=== PATIENT | male | born 1975 | race Hispanic/Latino ===

== ENCOUNTER 2024-09-08 14:46 | Emergency (ER) | payer OTHER, SELFPAY ==
[2024-09-08] VITALS (18 sets, daily range): BP systolic 118–170; BP diastolic 60–93; PULSE 48–86; RESP 12–22; TEMP 36.8; O2SAT 92–100; BMI 42.0
--- NOTE | 2024-09-08 15:12 | EKG_ITS ---
[address] [address] Test Date: 2024-09-08 Pat Name: José Manuel Ramirez Department: Room: Gender: Male Consumer Marketing Specialist: WILLIAM : 1975 Requested By: Order Number: [id number] Reading MD: Eliot Sage Measurements Intervals [place] Rate: 50 P: 44 AL: 146 QRS: 8 QRSD: 92 T: 9 QT: 434 QTc: 395 Interpretive Statements Sinus bradycardia Electronically Signed On 09-08-2024 16:51:57 PST by Eliot Sage
[2024-09-08] MEDS: ONDANSETRON 4 MG/2 ML INJ IV (15:22)
[2024-09-08 15:25] LABS: Add Manual Diff / Slide Review NO; Basophils Absolute Auto 0 /uL (0-100); Basophils Percent Auto 0.3 % (0-2); Eosinophils Absolute Auto 0 /uL (0-450); Eosinophils Percent Auto 0.5 % (2-4); Hematocrit 50.8 % (41-53); Hemoglobin 17.3 g/dL (13.5-17.5); Lymphocytes Absolute Auto 700 /uL (1100-4500); Lymphocytes Percent Auto 9.5 % (25-40); Mean Corpuscular HGB Conc 34.1 % (30-36); Mean Corpuscular Volume 90.9 fL (80-100); Monocytes Absolute Auto 200 /uL (0-900); Monocytes Percent Auto 2.9 % (3-14); Neutrophils Absolute Auto 6200 /uL (1500-7000); Neutrophils Percent Auto 86.8 % (50-75); Platelet Count 264 X10^3/uL (150-400); Red Blood Cell Count 5.59 X10^6/uL (4.5-5.9); Red Cell Distribution Width 13.1 % (11.6-14.8); White Blood Cell Count 7.2 X10^3/uL (4.5-11.0)
[2024-09-08 15:36] LABS: Alanine Aminotransferase 63 IU/L (<50); Albumin 4.7 g/dL (3.5-5.0); Albumin Globulin Ratio 1.2 (1.0-2.8); Alkaline Phosphatase 93 U/L (38-126); Aspartate Aminotransferase 47 IU/L (17-59); BUN Creatinine Ratio 15.2 (6-22); Bilirubin Total 0.9 mg/dL (0.2-1.3); Blood Urea Nitrogen 16 mg/dL (9-20); Calcium 9.3 mg/dL (8.4-10.2); Carbon Dioxide 26 mmol/L (22-32); Chloride 104 mmol/L (98-107); Estimated Glomerular Filt Rate > 60 mL/min (>60); Glucose 131 mg/dL (70-100); HEMOLYSIS < 15 (0-50); Lipase 50 U/L (23-300); Potassium 3.9 mmol/L (3.4-5.1); Sodium 135 mmol/L (137-145); Total Protein 8.7 g/dL (6.3-8.2)
[2024-09-08] MEDS: KETOROLAC 30 MG/ML VIAL 15 MG IV (16:41)
[2024-09-08 17:10] LABS: Troponin I < 0.012 ng/mL (0.01-0.034)
--- NOTE | 2024-09-08 18:38 | ED.ABDPAIN ---
HPI - Abdominal Pain General Chief Complaint: Abdominal Pain Stated Complaint: Stomach issues Time Seen by Provider: 09/08/24 18:38 Source: patient, RN notes reviewed and old records reviewed Limitations: no limitations History of Present Illness HPI narrative: 48-year-old male history of PTSD and ADHD who presents with complaint of abdominal discomfort and nausea and vomiting that has been intermittent for some time. He states episodes always occur after eating typically in the morning though often resolve with epigastric pain and vomiting after he throws up but today did not. He states he has had 3 episodes which he would describe as bad this what has been the most intense today and did not resolve after throwing up this morning. He states no fevers or chills he did get clammy. States he will throw up and typically symptoms resolve but did not today. He will have an urge to go the bathroom but usually has formed stools maybe little bit loose. Does not normally have any diarrhea no black or bloody stools. He states pain is usually in the epigastric area feels like a brick sitting in that area. He states it does not radiate. Denies any shortness of breath, no chest pain, no urinary symptoms or swelling in extremities. Patient states he takes Wellbutrin 300 mg daily, Zoloft 50 mg daily for PTSD, he is on Adderall extended release in the mornings and occasionally takes intermediate release in the afternoons and occasional Claritin PRN. He has had a prior appendectomy, has had bilateral ankle surgery, right knee surgery x2 left knee surgery x1, tonsillectomy left shoulder surgery in the past. No known drug allergies. No tobacco, no alcohol, vapes marijuana does not use any other recreational drugs. [facility] does follow up with primary care for his Adderall prescriptions in [place]. Patient is accompanied by significant other. Related Data Home Medications Medication Instructions Recorded Confirmed bupropion HCl 150 mg 24 hr tablet, 150 mg PO QDAY ##0 01/23/17 extended release (Wellbutrin XL) celecoxib 200 mg capsule (Celebrex) ##0 01/23/17 dextroamphetamine-amphetamine 30 30 mg PO BID ##0 01/23/17 mg tablet (Adderall) sertraline 50 mg tablet (Zoloft) 50 mg PO QDAY ##0 01/23/17 acetaminophen 500 mg tablet 1,000 mg PO HS ##0 09/29/17 (Tylenol Extra Strength) ibuprofen 800 mg tablet 800 mg PO PRN ##0 09/29/17 Previous Rx's Medication Instructions Recorded hydrocodone 5 mg-acetaminophen 325 1 - 2 tab PO Q6HP PRN #5 tabs 01/23/17 mg tablet (Maybeury) ibuprofen 800 mg tablet 800 mg PO Q6HP PRN #40 tabs 09/29/17 methocarbamol 750 mg tablet 750 mg PO QIDP PRN #40 tabs 09/29/17 (Robaxin-750) famotidine 40 mg tablet (Pepcid) 40 mg PO DAILY #30 tabs 09/08/24 Allergies Allergy/AdvReac Type Severity Reaction Status Date / Time No Known Drug Allergies Allergy Verified 09/08/24 15:08 Review of Systems Review of Systems ROS Unobtainable: All systems reviewed & are unremarkable except as noted in HPI and below Patient History Social History Smoking Status: Never smoker Smoking Status: Never smoker alcohol intake frequency: other Substance Use Type: marijuana Exam Narrative Exam Narrative: GENERAL: Alert and oriented x three, male in mild distress HEENT: Head normocephalic, atraumatic, EOMI, pupils reactive, face symmetric, moist mucous membranes NECK: Supple, full range of motion CARDIOVASCULAR: Regular rate and rhythm without murmurs, rubs or gallops. RESPIRATORY: Breath sounds equal bilaterally, no wheezes rales or rhonchi. ABDOMEN: Soft, positive for epigastric and right upper quadrant tenderness. Normoactive bowel sounds all 4 quadrants. No guarding or rebound, rigidity, no mass, no pulsatile mass or bruit : No CVA tenderness EXTREMITIES: Normal range of motion, no clubbing or edema. Neurovascularly intact NEUROLOGICAL: Cranial nerves II through XII grossly intact. Moving all extremities SKIN: Warm, dry, no petechiae, no rashes or lesions. Initial Vital Signs Initial Vital Signs: Vital Signs Temperature 98.3 F 09/08/24 15:02 Pulse Rate 54 L 09/08/24 15:02 Respiratory Rate 18 09/08/24 15:02 Blood Pressure 157/81 H 09/08/24 15:02 Pulse Oximetry 99 09/08/24 15:02 Oxygen Delivery Method Room Air 09/08/24 15:02 Course Orders Ordered: ED Orders 09/08/24 18:50 US abdomen limited Stat Discontinued Medications Ketorolac Tromethamine (Ketorolac 30 Mg/Ml Vial) 15 mg IV NOW ONE Stop: 09/08/24 16:14 Last Admin: 09/08/24 16:41 Dose: 15 mg Documented By: BRIDGETT Ondansetron HCl (Ondansetron 4 Mg/2 Ml Inj) 4 mg IV NOW PRN PRN Reason: Nausea And Vomiting Last Admin: 09/08/24 15:22 Dose: 4 mg Documented By: JULITA Ondansetron HCl (Ondansetron 4 Mg Odt) 4 mg PO NOW PRN PRN Reason: Nausea And Vomiting Ondansetron HCl (Ondansetron 4 Mg Odt Prepack) 1 bottle MISC DIRECTED ONE Stop: 09/08/24 20:50 Last Admin: 09/08/24 21:00 Dose: 1 bottle Documented By: MONIQUE Pantoprazole Sodium (Pantoprazole 40 Mg Vial) 80 mg IV NOW ONE Stop: 09/08/24 18:55 Last Admin: 09/08/24 19:56 Dose: 80 mg Documented By: MONIQUE Vital Signs Vital signs: Vital Signs - 8 hr 09/08/24 19:00 09/08/24 19:00 09/08/24 19:30 Pulse Rate 80 Respiratory Rate 17 Blood Pressure 120/76 126/78 Pulse Oximetry 98 Oxygen Delivery Method Room Air 09/08/24 19:30 09/08/24 20:00 09/08/24 20:00 Pulse Rate 69 86 Respiratory Rate 17 19 Blood Pressure 118/73 Pulse Oximetry 98 96 Oxygen Delivery Method Room Air 09/08/24 20:30 09/08/24 20:30 Pulse Rate 79 Respiratory Rate 15 Blood Pressure 119/72 Pulse Oximetry 94 Oxygen Delivery Method Room Air MDM - Abdominal Pain Lab Data 09/08/24 15:15 09/08/24 15:15 Labs: Lab Results 09/08/24 Range/Units 15:15 WBC 7.2 (4.5-11.0) X10^3/uL RBC 5.59 (4.5-5.9) X10^6/uL Hgb 17.3 (13.5-17.5) g/dL Hct 50.8 (41-53) % MCV 90.9 (80-100) fL MCH 31.0 (26-34) PG MCHC 34.1 (30-36) % RDW 13.1 (11.6-14.8) % Plt Count 264 (150-400) X10^3/uL Neut % (Auto) 86.8 H (50-75) % Lymph % (Auto) 9.5 L (25-40) % [place] % (Auto) 2.9 L (3-14) % Eos % (Auto) 0.5 L (2-4) % Baso % (Auto) 0.3 (0-2) % Neut # (Auto) 6200 (7802-9083) /uL Lymph # (Auto) 700 L (9540-8024) /uL [place] # (Auto) 200 (0-900) /uL Eos # (Auto) 0 (0-450) /uL Baso # (Auto) 0 (0-100) /uL Sodium 135 L (137-145) mmol/L Potassium 3.9 (3.4-5.1) mmol/L Chloride 104 (98-107) mmol/L Carbon Dioxide 26 (22-32) mmol/L BUN 16 (9-20) mg/dL Creatinine 1.05 (0.66-1.25) mg/dL Estimated GFR > 60 (>60) mL/min BUN/Creatinine Ratio 15.2 (6-22) Glucose 131 H (70-100) mg/dL Calcium 9.3 (8.4-10.2) mg/dL Total Bilirubin 0.9 (0.2-1.3) mg/dL AST 47 (17-59) IU/L ALT 63 H (<50) IU/L Alkaline Phosphatase 93 (38-126) U/L Troponin I < 0.012 (0.01-0.034) ng/mL Total Protein 8.7 H (6.3-8.2) g/dL Albumin 4.7 (3.5-5.0) g/dL Globulin 4.0 (1.7-4.1) g/dL Albumin/Globulin Ratio 1.2 (1.0-2.8) Lipase 50 (23-300) U/L Imaging Data US - abdomen: Radiologist's Impression: Close Abdomen Ultrasound (Signed) Rajendra Gomez - 09/08/24 [address] [place] [address] Ultrasound Report Signed Patient: José Manuel Ramirez MR#: [id number] : 1975 Acct:[id number] Age/Sex: 48 / M Date of Service: 09/08/24 Loc: ED Accession Number: [id number] Procedure: US abdomen limited Ordering Provider: Maddie Mascorro D.O. PROCEDURE: US ABDOMEN LIMITED INDICATIONS: RUQ/epigastric pain after eating TECHNIQUE: Real-time scanning was performed of the abdominal and retroperitoneal organs, with image documentation. COMPARISON: None. FINDINGS: Liver: Increased liver echogenicity with posterior attenuation, most consistent with moderate to severe steatosis. Gallbladder: No gallstones. No wall thickening. No pericholecystic edema. Negative sonographic Colon's sign. Biliary ducts: Intrahepatic bile ducts are non-dilated. Extrahepatic bile duct caliber measures 4 mm. Normal is 6-7 mm or less in diameter, or 10 mm or less post-cholecystectomy. Miscellaneous: No free abdominal fluid. IMPRESSION: At least moderate hepatic steatosis. Correlate with elevated liver enzymes, as findings could indicate steatohepatitis. No gallbladder pathology. Dictated by: Rajendra Gomez M.D. on 09/08/2024 at 20:14 Approved by: Rajendra Gomez M.D. on 09/08/2024 at 20:15 ECG Data Attestation: I personally reviewed and interpreted this ECG as follows: Prior ECG tracings: not available for review Interpretation: Sinus bradycardia rate of 50 MI 146 QRS of 92 QTC of 395. Patient has inverted T-wave in lead 3 not in 2 or AVF, no other acute ST changes noted. No priors for comparison. MDM Narrative Medical decision making narrative: 48-year-old male who developed epigastric pain which typically resolves after he throws up after shortly after eating. He notes that symptoms have happened more frequently after trip to [place] and [place] when he returns to the [place] in eats [place] food is more likely to occur. Has had episodes on and off in the past this has been his most intense and did not resolve. Labs show white count of 7.2 hemoglobin 17 platelets of 264 predominance of neutrophils. Coags are negative sodium is 135 potassium 3.9 chloride 104 CO2 is 26 BUN 16 creatinine is 1.05 glucose is 131 ALT 63 AST is 47 bilirubin is 0.9 alk-phos is 93 lipase is 50. Troponin less than 0.012 EKG shows sinus bradycardia rate of 50 US RUQ-at least moderate hepatic steatosis, correlate with the elevated liver enzymes could indicate steatohepatitis no gallbladder pathology. Patient received Toradol and Zofran. He states it took some time but his symptoms have improved. Reviewed findings with patient I suspect he would benefit from an upper EGD. Patient is agreeable he was feeling somewhat improved but we will send a prescription for Pepcid daily to the [facility] pharmacy as well as a short course of Zofran with return precautions. And contact to follow up for EGD. Discharge Plan Departure Patient Disposition: Home Clinical Impression: Abdominal pain, Vomiting Instructions: DI for Abdominal Pain-Adult Activity Restrictions/Additional Instructions: Please follow up with your physician for recheck. I do think you would probably benefit from an EGD or upper endoscopy. Please call the contact information below. Please take Pepcid or omeprazole 40 mg daily. Prescription was sent to the [facility] pharmacy. Take once daily. Please return for recurrent symptoms, fevers, persistent vomiting, black or bloody stool, persistent abdominal back or flank pain or other new or concerning changes Prescriptions: New famotidine [Pepcid] 40 mg tablet 40 mg PO DAILY Qty: 30 0RF No Action celecoxib [Celebrex] 200 MG capsule Qty: 0 sertraline [Zoloft] 50 MG tablet 50 mg PO QDAY Qty: 0 dextroamphetamine-amphetamine [Adderall] 30 MG tablet 30 mg PO BID Qty: 0 bupropion HCl [Wellbutrin XL] 150 MG tablet extended release 24 hr 150 mg PO QDAY Qty: 0 hydrocodone-acetaminophen [Maybeury] 5 MG/325 MG tablet 1 - 2 tab PO Q6HP PRNQty: 5 0RF acetaminophen [Tylenol Extra Strength] 500 MG tablet 1,000 mg PO HS Qty: 0 ibuprofen 800 MG tablet 800 mg PO PRN Qty: 0 ibuprofen 800 MG tablet 800 mg PO Q6HP PRNQty: 40 0RF methocarbamol [Robaxin-750] 750 MG tablet 750 mg PO QIDP PRNQty: 40 0RF Referrals: José Manuel Cid MD [Physician] - Provider,Shaan HERRERA [Primary Care Provider] - Stand Alone Forms: Patient Portal/API/Survey
--- NOTE | 2024-09-08 18:50 | DI.US.S_ITS ---
PROCEDURE: US ABDOMEN LIMITED INDICATIONS: RUQ/epigastric pain after eating TECHNIQUE: Real-time scanning was performed of the abdominal and retroperitoneal organs, with image documentation. COMPARISON: None. FINDINGS: Liver: Increased liver echogenicity with posterior attenuation, most consistent with moderate to severe steatosis. Gallbladder: No gallstones. No wall thickening. No pericholecystic edema. Negative sonographic Colon's sign. Biliary ducts: Intrahepatic bile ducts are non-dilated. Extrahepatic bile duct caliber measures 4 mm. Normal is 6-7 mm or less in diameter, or 10 mm or less post-cholecystectomy. Miscellaneous: No free abdominal fluid. IMPRESSION: At least moderate hepatic steatosis. Correlate with elevated liver enzymes, as findings could indicate steatohepatitis. No gallbladder pathology. Dictated by: Rajendra Gomez M.D. on 09/08/2024 at 20:14 Approved by: Rajendra Gomez M.D. on 09/08/2024 at 20:15
[2024-09-08] MEDS: PANTOPRAZOLE 40 MG VIAL 80 MG IV (19:56)
[2024-09-08] MEDS: ONDANSETRON 4 MG ODT PREPACK 1 BOTTLE MISC (21:00)
== END 2024-09-08 21:13 | disposition home or self-care (01) ==
PROVIDERS: Emergency Medicine; Emergency Provider Emergency Medicine
DX: R10.13 Epigastric pain (principal); R11.2 Nausea with vomiting, unspecified; R00.1 Bradycardia, unspecified
CPT/HCPCS: 36415; 76705; 80053; 83690; 84484; 85025; 93005; 96374; 96375; 99284; J1885; J2405; J2470